=== PATIENT | female | born 1995 | race Caucasian/White ===

== ENCOUNTER → 2022-08-22 10:18 | Outpatient (CLI) | payer OTHER, SELFPAY ==
--- NOTE | 2022-08-22 10:21 | DI.US.S_ITS ---
PROCEDURE: US OB <= 14 WEEKS FETUS INDICATIONS: DATES OUTSIDE/PRIOR DATING DATA: Last menstrual period (LMP): 06/05/2022. LMP-based estimated date of delivery (MOE): 03/12/2023. First dating scan (date and location): 08/22/2022. Estimated date of delivery (MOE) from first dating scan: 03/08/2023. TECHNIQUE: Real-time scanning was performed of the fetus and maternal pelvic organs, with image documentation. Endovaginal scanning was also performed to better visualize the fetus and maternal ovaries. COMPARISON: None. FINDINGS: Embryo: [place]-rump length of 5.0 centimeters corresponding to gestational age of 11 weeks 5 days Heart rate: 157 beats per minute 3.9 centimeters subchorionic hemorrhage present, less than 50 percent circumference of the gestational sac. Maternal organs: Right corpus luteum. Left ovary not visualized likely due to bowel gas. IMPRESSION: Single living intrauterine with gestational age of 11 weeks 5 days by crown-rump length corresponding to an MOE of 03/08/2023, concordant with clinical dates. We strive to produce accurate, complete, and clear reports of imaging services. To assist us in improving patient care, this report was composed using standard report templates and voice recognition software. Therefore, it may contain abnormal punctuation, insertions and/or omissions. Occasional wrong-word or sound-alike substitutions may occur. Though we review the report and make efforts to correct it, we do recommend that the report be read carefully in proper context to recognize any text inaccuracies. Dictated by: Chilango Colon M.D. on 08/22/2022 at 13:08 Approved by: Chilango Colon M.D. on 08/22/2022 at 13:16
== END ==
PROVIDERS: Family Provider Family Medicine; PCP Family Medicine; Referring Provider Specialist; Visit Provider Specialist
DX: Z3A.11 11 weeks gestation of pregnancy; Z34.81 Encounter for supervision of other normal pregnancy, first trimester
CPT/HCPCS: 76801; 76817

== ENCOUNTER → 2022-09-04 09:11 | Outpatient (CLI) | payer OTHER, SELFPAY ==
[2022-09-04 10:56] LABS: Add Manual Diff / Slide Review NO; Basophils Absolute Auto 100 /uL (0-100); Basophils Percent Auto 0.6 % (0-2); Eosinophils Absolute Auto 500 /uL (0-450); Eosinophils Percent Auto 5.8 % (2-4); Hematocrit 36.3 % (36-46); Hemoglobin 12.3 g/dL (12.0-16.0); Lymphocytes Absolute Auto 1900 /uL (1100-4500); Lymphocytes Percent Auto 21.3 % (25-40); Mean Corpuscular Hemoglobin 29.6 PG (26-34); Mean Corpuscular Volume 87.2 fL (80-100); Monocytes Absolute Auto 400 /uL (0-900); Monocytes Percent Auto 4.6 % (3-14); Neutrophils Absolute Auto 6000 /uL (1500-7000); Neutrophils Percent Auto 67.7 % (50-75); Platelet Count 248 X10^3/uL (150-400); Red Blood Cell Count 4.16 X10^6/uL (4.0-5.2); Red Cell Distribution Width 13.1 % (11.6-14.8); White Blood Cell Count 8.9 X10^3/uL (4.5-11.0)
[2022-09-04 17:48] LABS: Hepatitis B Surface Antigen NEGATIVE s/c (NEGATIVE); Rubella Antibody IgG 3.7 IU/mL (>15)
[2022-09-04 17:58] LABS: HIV 1 & 2 Ab/Ag 4th Gen Combo NEGATIVE (NEGATIVE); Hep C Virus Ab w/Reflex Quant NEGATIVE s/c (NEGATIVE)
[2022-09-05 08:10] LABS: RPR Screen Non Reactive (Non Reactive)
[2022-09-05 10:25] LABS: Varicella IgG Antibody 852 index (Immune >165)
== END ==
PROVIDERS: Family Provider Family Medicine; PCP Family Medicine; Referring Provider Specialist; Visit Provider Specialist
DX: Z34.81 Encounter for supervision of other normal pregnancy, first trimester (principal)
CPT/HCPCS: 36415; 80055; 86787; 86803; 86850; 86900; 86901; 87086; 87389

== ENCOUNTER → 2022-10-27 07:59 | Outpatient (CLI) | payer OTHER, SELFPAY ==
--- NOTE | 2022-10-27 07:59 | DI.US.S_ITS ---
PROCEDURE: US OB >= 14 WEEKS FETUS INDICATIONS: 20 week anatomy OUTSIDE/PRIOR DATING DATA: Last menstrual period (LMP): 06/05/2022. LMP-based estimated date of delivery (MOE): 03/12/2023 First dating scan (date and location): 08/22/2022 Estimated date of delivery (MOE) from first dating scan: 03/08/2023. The calculations are made using the working MOE of 03/12/2023. TECHNIQUE: Real-time scanning was performed of the fetus, with image documentation and biometric measurements. Endovaginal scanning: Not performed COMPARISON: None. FINDINGS: General: A single living intrauterine gestation is present. Presentation: Breech. Placenta: Placental position is posterior , without previa. Amniotic fluid index: 16.9 cm, normal range is 5-24 cm. Single deepest vertical pocket is 5.6 cm. heart rate: 136 beats per minute. Maternal cervical canal: 4.6 cm long. Normal lower limit is 2.5 cm. biometrics: Biparietal diameter: 4.6 cm, 20 weeks 0 days Head circumference: 18.1 cm, 20 weeks 3 days Abdominal circumference: 17.2 cm, 22 weeks 0 days Femur length: 3.3 cm, 20 weeks 2 days Clinically estimated gestational age: 20 weeks 4 days Composite gestational age from present scan: 20 weeks 5 days Estimated weight and percentile: 398 g, 73rd percentile Anatomic survey: Neuro: Ventricles are non-dilated at less than 10 mm. Cisterna magna is normal at 3-11 mm. Cerebellum is normal in size and morphology. Nuchal skin fold: Borderline, measuring 6 mm. Face: Nose and lips, facial profile are normal. Spine: No evidence for spina bifida. Heart: 4-chambered heart is present, with normal ventricular outflow tracts. Diaphragm: Diaphragm is intact. Stomach: Left-sided stomach is present. Kidneys: No hydronephrosis. Normal is less than 5 mm in 2nd trimester, less than 7 mm in 3rd trimester. Cord: 3-vessel cord has orthotopic insertion. Bladder: Normal in size. Extremities: All 4 extremities identified. IMPRESSION: 1. Living 2nd trimester intrauterine with no sonographic evidence of complications. Current ultrasound age corresponds to establish clinical age based on LMP. 2. Borderline nuchal skin fold thickening. Otherwise unremarkable 2nd trimester anatomical survey. We strive to produce accurate, complete, and clear reports of imaging services. To assist us in improving patient care, this report was composed using standard report templates and voice recognition software. Therefore, it may contain abnormal punctuation, insertions and/or omissions. Occasional wrong-word or sound-alike substitutions may occur. Though we review the report and make efforts to correct it, we do recommend that the report be read carefully in proper context to recognize any text inaccuracies. Dictated by: Berny Lawler M.D. on 10/27/2022 at 17:59 Approved by: Berny Lawler M.D. on 10/27/2022 at 18:02
== END ==
PROVIDERS: Family Provider Family Medicine; Referring Provider Specialist; Visit Provider Specialist
DX: Z34.82 Encounter for supervision of other normal pregnancy, second trimester (principal); Z3A.20 20 weeks gestation of pregnancy
CPT/HCPCS: 76811

== ENCOUNTER → 2022-11-03 10:03 | Outpatient (CLI) | payer OTHER, SELFPAY ==
[2022-11-05 23:24] LABS: AFP Value 55.8 ng/mL (.); Gest Age on Col Date 21.6 weeks (.); Insulin Dep Diabetes No (.); OSBR Risk 1IN 10000 (.); Results Report (.); Test Results *Screen Negative* (.)
[2022-11-06 07:23] LABS: PDF SCANNED
== END ==
PROVIDERS: Family Provider Family Medicine; Referring Provider Physician Assistant Medical; Visit Provider Physician Assistant Medical
DX: Z34.82 Encounter for supervision of other normal pregnancy, second trimester (principal); Z3A.21 21 weeks gestation of pregnancy
CPT/HCPCS: 82105

== ENCOUNTER → 2022-12-01 08:58 | Outpatient (CLI) | payer OTHER, SELFPAY ==
[2022-12-01 11:03] LABS: Hemoglobin 10.9 g/dL (12.0-16.0)
[2022-12-01 11:10] LABS: GTT (PREG) 1 Hour PP 50gm Dose 83 mg/dL (76-139)
== END ==
PROVIDERS: Family Provider Family Medicine; Referring Provider Physician Assistant Medical; Visit Provider Physician Assistant Medical
DX: Z34.82 Encounter for supervision of other normal pregnancy, second trimester (principal); Z3A.21 21 weeks gestation of pregnancy
CPT/HCPCS: 36415; 82950; 85014; 85018

== ENCOUNTER 2023-01-16 17:26 | Observation (INO) | payer OTHER, SELFPAY ==
[2023-01-16 18:09] LABS: Appearance Urine UA CLEAR; Bilirubin Urine UA NEGATIVE (NEGATIVE); Color Urine UA YELLOW; Glucose Urine UA NEGATIVE (Negative); Ketones Urine UA NEGATIVE (NEGATIVE); Leukocyte Esterase Urine UA NEGATIVE (NEGATIVE); Nitrite Urine UA NEGATIVE (Negative); Occult Blood Urine UA NEGATIVE (Negative); Protein Urine UA NEGATIVE (Negative); Specific Gravity Urine UA <=1.005 (1.000-1.035); Urobilinogen Urine UA 0.2 E.U./dL (0.2)
[2023-01-16 18:10] LABS: pH Urine UA 6.5 (4.5-8.0)
[2023-01-16 18:17] LABS: Bacteria Urine None Seen; Culture Indicated Urine Cult Not Indicated; RBC Urine None Seen (0-5/HPF); Squamous Epithelial Cell Urine None Seen (0-5/HPF); WBC Urine None Seen (0-5/HPF)
[2023-01-16 18:40] LABS: Add Manual Diff / Slide Review NO; Basophils Absolute Auto 100 /uL (0-100); Basophils Percent Auto 0.6 % (0-2); Eosinophils Absolute Auto 400 /uL (0-450); Eosinophils Percent Auto 2.8 % (2-4); Hematocrit 31.4 % (36-46); Hemoglobin 10.7 g/dL (12.0-16.0); Lymphocytes Absolute Auto 2300 /uL (1100-4500); Lymphocytes Percent Auto 17.4 % (25-40); Mean Corpuscular Volume 85.4 fL (80-100); Monocytes Absolute Auto 800 /uL (0-900); Monocytes Percent Auto 5.9 % (3-14); Neutrophils Absolute Auto 9500 /uL (1500-7000); Neutrophils Percent Auto 73.3 % (50-75); Platelet Count 220 X10^3/uL (150-400); Red Blood Cell Count 3.67 X10^6/uL (4.0-5.2); Red Cell Distribution Width 12.6 % (11.6-14.8)
[2023-01-16 18:50] LABS: Alanine Aminotransferase 16 IU/L (<35); Albumin 3.5 g/dL (3.5-5.0); Albumin Globulin Ratio 1.2 (1.0-2.8); Alkaline Phosphatase 84 U/L (38-126); Aspartate Aminotransferase 22 IU/L (14-36); BUN Creatinine Ratio 10.8 (6-22); Bilirubin Total 0.4 mg/dL (0.2-1.3); Blood Urea Nitrogen 4 mg/dL (7-17); Calcium 8.5 mg/dL (8.4-10.2); Carbon Dioxide 22 mmol/L (22-32); Chloride 106 mmol/L (98-107); Estimated Glomerular Filt Rate > 60 mL/min (>60); Glucose 80 mg/dL (70-100); HEMOLYSIS < 15 (0-50); Potassium 3.5 mmol/L (3.4-5.1); Sodium 133 mmol/L (137-145); Total Protein 6.5 g/dL (6.3-8.2)
--- NOTE | 2023-01-16 19:21 | PM.OBHP.1 ---
OB HPI Date/Time Date of admission: 01/16/23 Date Patient Seen: 01/16/23 Time Patient Seen: 19:22 History of Present Condition Chief complaint: blood pressure check : 2 Para: 0 Estimated Date of Delivery: 03/12/23 Narrative: Sonaliamy Cartagena is a 27 year old female Indications Operative indications ( section): RLQ Pain (Patient states that 7:00 a.m. this morning she developed right lower quadrant pain upon awakening. She states that this is different than her round ligament pain earlier in . The pain remains constant roughly 3 to 4/10. She has exacerbations which go to 7-8. She denies any nausea vomiti) History of Present care: good care Dating criteria: LMP confirmed by 1st trimester US Ultrasounds: normal mid trimester US Obstetrical complications: none Preadmission Labs -: Antibody screen: negative, HBsAG: negative, HIV: negative, HSV 1: negative, HSV 2: negative and RPR/VDLR: negative -: Rubella: not immune and Varicella: immune PFSH Surgical History [place] teeth extracted Family History Grandmother Ovarian cancer Family/Other Breast cancer Family/Other Diabetes mellitus Social History marital status: unmarried,living together number of children: 0 household members: significant other lives independently: Yes caregiver/support person: Yes housing: house pets and animals: Yes (dogs, cat, rabbits, chickens; reviewed toxo and salmonella precations) education level: college (some college) occupational status: employed (manages a retail store) current occupational exposures/hazards: No special sarah needs: No travel history: recent ([place]) seatbelt use: always helmet use: Yes water heater temp set < 120 deg: Yes working smoke detector in home: Yes carbon monox detector in home: Yes firearms in home: No Smoking Status: Never smoker second hand exposure: No alcohol intake: former (occasionally when not ) substance use type: does not use during the past year weight has: remained stable well-balanced diet: daily or most days daily servings fruits/ve-4 caffeine: Yes (occasional black ) Type(s) of exercise: running and yoga frequency: 5-6 times per week Meds Home Medications and Allergies Home Medications Medication Instructions Recorded Confirmed Type albuterol sulfate 90 mcg/actuation 1 puff inhalation Q6H #3 12/07/17 01/14/23 Rx aerosol inhaler (Proventil HFA) inhalations [id number] 400 mcg-om3 35 mg-dha 25 tab PO 08/25/22 01/14/23 History mg-epa 5 mg-fish oil chewable tablet ferrous gluconate 240 mg (27 mg 240 mg PO DAILY 08/25/22 01/14/23 History iron) tablet (Ferate) Allergies Allergy/AdvReac Type Severity Reaction Status Date / Time No Known Drug Allergies Allergy Verified 01/14/23 10:13 OB Exam Vital signs Blood Pressure: 98/66 Pulse Rate: 96 Respiratory Rate: 18 Temperature: 98.1 F HENMT Head: normocephalic Mouth: oral mucosae normal, tongue normal, mucous membranes abnormal and other (Dentition appears normal) Eyes General: appearance normal, both eyes and all related structures Direct ophthalmoscopy: other (Nonicteric) Resp Effort & Inspection: normal respiratory effort and able to speak in complete sentences (No rales wheezes) Cardio Rate: regular rate Rhythm: regular rhythm Heart Sounds: S1 normal and S2 normal GI Inspection: normal to inspection Palpation: Yes tender (Tenderness in the RLQ. This appeared to be different from uterus) Auscultation: normal bowel sounds Other: The round ligament was nontender. The tenderness is palpated appear to be different than that of the uterus. 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 Other: Reactive strip with evidence of good accelerations. Category 1 strip. Objective Labs 01/16/23 18:25 01/16/23 18:25 Labs: Laboratory Results - last 24 hr 01/16/23 01/16/23 17:45 18:25 WBC 13.0 H RBC 3.67 L Hgb 10.7 L Hct 31.4 L MCV 85.4 MCH 29.0 MCHC 34.0 RDW 12.6 Plt Count 220 Neut % (Auto) 73.3 Lymph % (Auto) 17.4 L [place] % (Auto) 5.9 Eos % (Auto) 2.8 Baso % (Auto) 0.6 Neut # (Auto) 9500 H Lymph # (Auto) 2300 [place] # (Auto) 800 Eos # (Auto) 400 Baso # (Auto) 100 Sodium 133 L Potassium 3.5 Chloride 106 Carbon Dioxide 22 BUN 4 L Creatinine 0.37 L Estimated GFR > 60 BUN/Creatinine Ratio 10.8 Glucose 80 Calcium 8.5 Total Bilirubin 0.4 AST 22 ALT 16 Alkaline Phosphatase 84 Total Protein 6.5 Albumin 3.5 Globulin 3.0 Albumin/Globulin Ratio 1.2 Urine Color Yellow Urine Appearance Clear Urine pH 6.5 Ur Specific Story <=1.005 Urine Protein Negative Urine Glucose (UA) Negative Urine Ketones Negative Urine Occult Blood Negative Urine Nitrate Negative Urine Bilirubin Negative Urine Urobilinogen 0.2 Ur Leukocyte Esterase Negative Urine RBC None seen Urine WBC None seen Ur Squamous Epith Cells None seen Urine Bacteria None seen Ur Culture Indicated? Cult not indicated Assessment and Plan Assessment and Plan Assessment and Plan narrative: Impression 27-year-old female at 32 weeks and 1 day. She appears to have developed right lower quadrant pain which is different from her round ligament pain I have discussed the issues with general surgery. In view of the fact that she is we will try to void and CT. However because of timing concerns we will pursue an MRI of the abdomen looking for evidence of appendicitis. Time Spent with Patient Total time spent with greater than 50% in coordination of care (as documented) at patient's floor/unit and/or counseling patient:: Greater than 35 minutes
[2023-01-16 19:41] VITALS: BP 98/66; PULSE 96; RESP 18; TEMP 36.7
== END 2023-01-16 19:10 | disposition home or self-care (01) ==
LOC: LABOR 17:31
PROVIDERS: Admitting Provider Obstetrics & Gynecology; Family Provider Family Medicine; Referring Provider Obstetrics & Gynecology; Visit Provider Obstetrics & Gynecology
DX: O26.893 Other specified pregnancy related conditions, third trimester (principal); R10.31 Right lower quadrant pain; O23.03 Infections of kidney in pregnancy, third trimester; N13.6 Pyonephrosis; Z3A.32 32 weeks gestation of pregnancy
CPT/HCPCS: 59025; 59050; 74181; 80053; 81001; 85025; 96360; 99232; 99283; G0378; G0379

== ENCOUNTER 2023-01-16 19:12 | Emergency (ER) | payer OTHER, SELFPAY ==
--- NOTE | 2023-01-16 19:15 | DI.MRI.S_ITS ---
PROCEDURE: MR ABDOMEN WO CON INDICATIONS: rlq pain TECHNIQUE: Coronal, axial, and sagittal HASTE, axial fat-suppressed HASTE, axial 2-D FLASH in- and [id number], axial T2 [id number], and diffusion-weighted imaging through the abdomen and pelvis. COMPARISON: None. FINDINGS: Image quality: Excellent. Pancreas and biliary system: Intra- and extra-hepatic biliary ducts are non dilated. Pancreas is normal in morphology, without adjacent soft tissue edema. Pancreatic duct is normal in caliber, without developmental anomalies. Gallbladder appears normal without gallstones. Other solid organs: Liver is normal in size. Spleen is normal in size. No adrenal nodules. Both kidneys are normal in size. Moderate right and mild left hydronephrosis. Nodes and vessels: No retroperitoneal or mesenteric adenopathy by size criteria. Aorta and inferior vena cava are normal in size. Bowel and peritoneum: Right lower quadrant appendix is partially visualized and appears normal. No periappendiceal edema or inflammatory changes are seen. Unenhanced bowel loops are normal in caliber. No free fluid. Pelvis: Enlarged gravid uterus. The no definite abnormality is seen. Ovaries are not well visualized. Lung bases: No basal pleural effusions. Heart size is normal. Bones and soft tissues: No ventral hernias. Bone marrow is of normal overall signal. IMPRESSION: 1. Enlarged gravid uterus. 2. Appendix is only partially visualized, but appears to be normal in size. No right lower quadrant inflammatory changes are seen. 3. Moderate right hydronephrosis and mild left hydronephrosis. Approved by: Chilango Flores M.D. on 01/16/2023 at 21:48
[2023-01-16 19:22] VITALS: BP 107/57; PULSE 71; RESP 16; TEMP 36.6; O2SAT 100; BMI 25.7
--- NOTE | 2023-01-16 21:58 | ED.GENADULT ---
HPI - General Adult General Chief complaint: Abdominal Pain Stated complaint: DISCHARGED FROM OB/RIGHT LOWER ABD PAIN Time Seen by Provider: 01/16/23 20:46 Source: patient Mode of arrival: Wheelchair History of Present Illness HPI narrative: Patient is a 27-year-old female. Thirty-two weeks EGA. Has less than 24 hours of right lower quadrant abdominal pain. No cramping. No vaginal bleeding. No urinary symptoms. No fevers. She was seen at the center and was sent to the emergency department for an MRI to evaluate for appendicitis. Pain is worse with feeling the baby move and with ambulating. Had labs drawn prior to arrival here in the ER. Had a white blood cell count of 13. Related Data Home Medications Medication Instructions Recorded Confirmed [id number] 400 mcg-om3 35 mg-dha 25 tab PO 08/25/22 01/14/23 mg-epa 5 mg-fish oil chewable tablet ferrous gluconate 240 mg (27 mg 240 mg PO DAILY 08/25/22 01/14/23 iron) tablet (Ferate) Previous Rx's Medication Instructions Recorded albuterol sulfate 90 mcg/actuation 1 puff inhalation Q6H #3 12/07/17 aerosol inhaler (Proventil HFA) inhalations Allergies Allergy/AdvReac Type Severity Reaction Status Date / Time No Known Drug Allergies Allergy Verified 01/14/23 10:13 Review of Systems Constitutional Constitutional: Reports system reviewed and no additional complaints, except as documented Gastrointestinal Gastrointestinal: Reports system reviewed and no additional complaints, except as documented Genitourinary Genitourinary: Reports system reviewed and no additional complaints, except as documented Integumentary/Breasts Skin/Breast: Reports system reviewed and no additional complaints, except as documented Patient History Surgical History [place] teeth extracted Family History Grandmother Ovarian cancer Family/Other Breast cancer Family/Other Diabetes mellitus Social History marital status: unmarried,living together number of children: 0 household members: significant other lives independently: Yes caregiver/support person: Yes housing: house pets and animals: Yes (dogs, cat, rabbits, chickens; reviewed toxo and salmonella precations) education level: college (some college) occupational status: employed (manages a retail store) current occupational exposures/hazards: No special sarah needs: No travel history: recent ([place]) seatbelt use: always helmet use: Yes water heater temp set < 120 deg: Yes working smoke detector in home: Yes carbon monox detector in home: Yes firearms in home: No Smoking Status: Never smoker second hand exposure: No alcohol intake: former (occasionally when not ) substance use type: does not use during the past year weight has: remained stable well-balanced diet: daily or most days daily servings fruits/ve-4 caffeine: Yes (occasional black ) Type(s) of exercise: running and yoga frequency: 5-6 times per week Smoking Status: Never smoker Substance Use Type: does not use Exam Initial Vital Signs Initial Vital Signs: Vital Signs Temperature 97.8 F 01/16/23 19:22 Pulse Rate 71 01/16/23 19:22 Respiratory Rate 16 01/16/23 19:22 Blood Pressure 107/57 L 01/16/23 19:22 Pulse Oximetry 100 01/16/23 19:22 Oxygen Delivery Method Room Air 01/16/23 19:22 HENMT Head: normal to inspection and normocephalic Resp Effort & Inspection: normal respiratory effort Cardio Rate: regular rate GI Inspection: normal to inspection Other: Gravid abdomen, minimal tenderness to palpation right lower quadrant Back/Spine/Pelvis Back: No CVA tenderness Skin General: no rashes or lesions noted Neuro General: patient alert and patient awake Course Orders Ordered: ED Orders 01/16/23 19:15 MR abdomen wo con Stat Vital Signs Vital signs: Vital Signs - 8 hr 01/16/23 22:06 Temperature 98.3 F Pulse Rate 74 Respiratory Rate 18 Blood Pressure 109/57 L Pulse Oximetry 100 Oxygen Delivery Method Room Air Medical Decision Making Imaging Data Abdominal MRI: Radiologist's Impression: PROCEDURE: MR ABDOMEN WO CON INDICATIONS: rlq pain TECHNIQUE: Coronal, axial, and sagittal HASTE, axial fat-suppressed HASTE, axial 2-D FLASH in- and [id number], axial T2 [id number], and diffusion-weighted imaging through the abdomen and pelvis. COMPARISON: None. FINDINGS: Image quality: Excellent. Pancreas and biliary system: Intra- and extra-hepatic biliary ducts are non dilated. Pancreas is normal in morphology, without adjacent soft tissue edema. Pancreatic duct is normal in caliber, without developmental anomalies. Gallbladder appears normal without gallstones. Other solid organs: Liver is normal in size. Spleen is normal in size. No adrenal nodules. Both kidneys are normal in size. Moderate right and mild left hydronephrosis. Nodes and vessels: No retroperitoneal or mesenteric adenopathy by size criteria. Aorta and inferior vena cava are normal in size. Bowel and peritoneum: Right lower quadrant appendix is partially visualized and appears normal. No periappendiceal edema or inflammatory changes are seen. Unenhanced bowel loops are normal in caliber. No free fluid. Pelvis: Enlarged gravid uterus. The no definite abnormality is seen. Ovaries are not well visualized. Lung bases: No basal pleural effusions. Heart size is normal. Bones and soft tissues: No ventral hernias. Bone marrow is of normal overall signal. IMPRESSION: 1. Enlarged gravid uterus. 2. Appendix is only partially visualized, but appears to be normal in size. No right lower quadrant inflammatory changes are seen. 3. Moderate right hydronephrosis and mild left hydronephrosis. [facility] Narrative Medical decision making narrative: Patient has a leukocytosis however in her current setting to include this is a nonspecific finding. Review of her medical record shows that otherwise her labs are unremarkable. MRI of her abdomen shows partial appendix but no signs of appendicitis. No secondary signs of appendicitis. Given the fact that the patient has had symptoms for less than 12 hours and is not febrile and has a benign exam we will hold on further workup for now. Patient was given strict return precautions. She expressed understanding and agreement. Discharge Plan Departure Patient Disposition: Home Clinical Impression: Abdominal pain during Instructions: DI for Abdominal Pain-Adult Activity Restrictions/Additional Instructions: Your workup here in the emergency department and over in labor and delivery is very reassuring. There was no indication of appendicitis based on the MRI today. Recommend that you keep all of your scheduled medical appointments. Return to the emergency department for new or worsening symptoms. Prescriptions: No Action albuterol sulfate [Proventil HFA] 90 mcg/actuation HFA aerosol inhaler 1 puff INHALATION Q6H Qty: 3 3RF [id number] oil 400 mcg-35 mg -25 mg-5 mg tablet,chewable PO ferrous gluconate [Ferate] 240 mg (27 mg iron) tablet 240 mg PO DAILY Referrals: Miscellaneous,Doctor, MD [Primary Care Provider] - Stand Alone Forms: Patient Portal/API
[2023-01-16 22:06] VITALS: BP 109/57; PULSE 74; RESP 18; TEMP 36.8; O2SAT 100
== END 2023-01-16 22:07 | disposition home or self-care (01) ==
PROVIDERS: Emergency Provider Emergency Medicine; Family Provider Family Medicine
DX: O26.893 Other specified pregnancy related conditions, third trimester (principal); R10.31 Right lower quadrant pain; O23.03 Infections of kidney in pregnancy, third trimester; N13.6 Pyonephrosis; Z3A.32 32 weeks gestation of pregnancy
CPT/HCPCS: 74181; 99283

== ENCOUNTER → 2023-02-12 09:01 | Outpatient (CLI) | payer OTHER, SELFPAY ==
[2023-02-13 09:29] LABS: Strep Grp B PCR NEG for Grp B Strep
== END ==
PROVIDERS: Family Provider Family Medicine; Visit Provider Student in an Organized Health Care Education/Training Program
DX: Z34.93 Encounter for supervision of normal pregnancy, unspecified, third trimester (principal); Z3A.36 36 weeks gestation of pregnancy
CPT/HCPCS: 87653

== ENCOUNTER 2023-03-02 04:49 | Observation (INO) | payer OTHER, SELFPAY ==
--- NOTE | 2023-03-02 05:58 | PM.OBTRLD ---
Visit Information Visit Information Date of evaluation: 03/02/23 Comments/Additional reasons for admission: 27yo at 38w4d here with contractions. Pt reports contractions starting earlier yesterday morning, increasing in frequency and intensity and now every 5 min. No vaginal bleeding or LOF. She is feeling her baby move regularly. [facility] Surgical History [place] teeth extracted Family History Grandmother Ovarian cancer Family/Other Breast cancer Family/Other Diabetes mellitus Social History marital status: unmarried,living together number of children: 0 household members: significant other lives independently: Yes caregiver/support person: Yes housing: house pets and animals: Yes (dogs, cat, rabbits, chickens; reviewed toxo and salmonella precations) education level: college (some college) occupational status: employed (manages a retail store) current occupational exposures/hazards: No special sarah needs: No travel history: recent ([place]) seatbelt use: always helmet use: Yes water heater temp set < 120 deg: Yes working smoke detector in home: Yes carbon monox detector in home: Yes firearms in home: No Smoking Status: Never smoker second hand exposure: No alcohol intake: former (occasionally when not ) substance use type: does not use during the past year weight has: remained stable well-balanced diet: daily or most days daily servings fruits/ve-4 caffeine: Yes (occasional black ) Type(s) of exercise: running and yoga frequency: 5-6 times per week Evaluation Evaluation Baseline heart rate: 125 Variability: Moderate (11-25) monitor accelerations: Present Monitor Decelerations: Absent Contraction Frequency (minutes): 4 Status: Category l Cervical dilation (cm): 3.5 Cervical effacement (%): 90 Diagnosis, Plan/Disposition Final Diagnosis (1) Prolonged latent phase of labor: Status: Acute Plan/Disposition Plan: 27yo at 38w4d here with contractions. Pt in early labor. Prefers to go home to her mother's house in [place] for now, as desires natural labor. GBS negative. NST reactive. Discussed return precautions. OB Disposition: home
== END 2023-03-02 05:42 | disposition home or self-care (01) ==
PROVIDERS: Admitting Provider Family Medicine; Family Provider Family Medicine; Referring Provider Family Medicine; Visit Provider Family Medicine
DX: O63.0 Prolonged first stage (of labor) (principal); Z3A.38 38 weeks gestation of pregnancy
CPT/HCPCS: G0378; G0379

== ENCOUNTER 2023-03-02 07:52 | Inpatient (IN) | payer OTHER, SELFPAY ==
[2023-03-02 08:20] VITALS: BP 114/63
[2023-03-02 08:58] LABS: Add Manual Diff / Slide Review NO; Basophils Absolute Auto 100 /uL (0-100); Basophils Percent Auto 0.4 % (0-2); Eosinophils Absolute Auto 0 /uL (0-450); Eosinophils Percent Auto 0.2 % (2-4); Hemoglobin 10.8 g/dL (12.0-16.0); Lymphocytes Absolute Auto 1100 /uL (1100-4500); Lymphocytes Percent Auto 7.4 % (25-40); Mean Corpuscular HGB Conc 33.6 % (30-36); Mean Corpuscular Hemoglobin 27.8 PG (26-34); Mean Corpuscular Volume 82.7 fL (80-100); Monocytes Absolute Auto 500 /uL (0-900); Monocytes Percent Auto 3.4 % (3-14); Neutrophils Absolute Auto 13500 /uL (1500-7000); Neutrophils Percent Auto 88.6 % (50-75); Platelet Count 251 X10^3/uL (150-400); Red Blood Cell Count 3.87 X10^6/uL (4.0-5.2); Red Cell Distribution Width 12.7 % (11.6-14.8); White Blood Cell Count 15.2 X10^3/uL (4.5-11.0)
[2023-03-02] MEDS: OXYTOCIN PREMIX 30 UNIT/500 ML PLAST..BAG 200 UNIT IV (10:48)
--- NOTE | 2023-03-02 11:29 | PM.OBHP.1 ---
OB HPI Date/Time Date of admission: 03/02/23 Date Patient Seen: 03/02/23 Time Patient Seen: 10:30 History of Present Condition Chief complaint: OB : 2 Para: 1 Estimated Date of Delivery: 03/12/23 Estimated Gestational Age (weeks): 38w4d Narrative: Sonali Cartagena is a 27 year old female - [id number] - at 38w4d presenting for labor. Seen in triage this AM - 3.5 cm dilated. Patient decided to labor at home. Contractions became more intense and closer together, prompting patient to return. No VB. Good FM. SROM shortly after arrival. History of Present care: good care Dating criteria: LMP confirmed by 1st trimester US Obstetrical complications: other (Rubella non immune) Medical complications: respiratory (Mild to moderate asthma) Preadmission Labs Blood type: A (+) positive -: Antibody screen: negative, HBsAG: negative, HIV: negative and RPR/VDLR: negative -: Rubella: not immune and Varicella: immune HCT: 10.8 Cell-free DNA: Low risk 3 hr GTT: 1 hr Narrative: Nrl Prior (ies) History: medical AB Evaluation Evaluation Baseline heart rate: 120 Variability: Moderate (11-25) monitor accelerations: Present Monitor Decelerations: Absent Category of Tracing: Reactive Status: Category l Dilation (cm): 10 Effacement (%): 100 station: +1 Comments: Returned to triage as contractions intensified. Took a brief shower, SROM occurred at this time 10:17 for clear fluid. Checked afterwards and found to be complete at 10:25. 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[employer]) current occupational exposures/hazards: No special sarah needs: No travel history: recent ([place]) seatbelt use: always helmet use: Yes water heater temp set < 120 deg: Yes working smoke detector in home: Yes carbon monox detector in home: Yes firearms in home: No Smoking Status: Never smoker second hand exposure: No alcohol intake: former (occasionally when not ) substance use type: does not use during the past year weight has: remained stable well-balanced diet: daily or most days daily servings fruits/ve-4 caffeine: Yes (occasional black ) Type(s) of exercise: running and yoga frequency: 5-6 times per week Meds Home Medications and Allergies Home Medications Medication Instructions Recorded Confirmed Type albuterol sulfate 90 mcg/actuation 1 puff inhalation Q6H #3 12/07/17 03/02/23 Rx aerosol inhaler (Proventil HFA) inhalations [id number] 400 mcg-om3 35 mg-dha 25 tab PO 08/25/22 02/26/23 History mg-epa 5 mg-fish oil chewable tablet ferrous gluconate 240 mg (27 mg 240 mg PO DAILY 08/25/22 03/02/23 History iron) tablet (Ferate) Allergies Allergy/AdvReac Type Severity Reaction Status Date / Time No Known Drug Allergies Allergy Verified 03/02/23 09:21 Review of Systems Review of Systems Narrative: as above OB Exam Narrative Exam Narrative: GEN: pleasant, NAD, uncomfortable with contractions Pulm:normal WOB Abd: gravid, soft, non TTP Skin: no visible rashes, WWP Psych: normal affect Neuro: normal gait, symmetric movement Objective Labs 03/02/23 08:30 Labs: Laboratory Results - last 24 hr 03/02/23 08:30 WBC 15.2 H RBC 3.87 L Hgb 10.8 L Hct 32.0 L MCV 82.7 MCH 27.8 MCHC 33.6 RDW 12.7 Plt Count 251 Neut % (Auto) 88.6 H Lymph % (Auto) 7.4 L [place] % (Auto) 3.4 Eos % (Auto) 0.2 L Baso % (Auto) 0.4 Neut # (Auto) 77790 H Lymph # (Auto) 1100 [place] # (Auto) 500 Eos # (Auto) 0 Baso # (Auto) 100 Blood Type A Positive Antibody Screen Negative Assessment and Plan Assessment and Plan Assessment and Plan narrative: 27 yo admitted at 38w4d for labor. Routine orders Planning unmedicated FHT reassuring on admit GBS neg
--- NOTE | 2023-03-02 11:49 | PM.OBPRVD ---
Events: Other (term labor, presented to triage earlier this AM in early labor and then returned in active labor) Labor & Delivery Delivery date: 03/02/23 Intrapartal Events: None Cervical ripening method: none Induction method: none Delivery monitor: external FHT (intermittent) Route of delivery: L&D Laceration Description: Labial (1st degree) Delivery repair: vicryl Estimated blood loss (mL): 400 Anesthesia Type: None Complications: None Narrative: Patient presented in active labor. SROM occurred while in shower, 10:17 for clear fluid. Complete upon initial check at 10:25. FHT intermittent, but reassuring. Category 1. MD called to bedside at 10:25. Patient began to push with contractions upon complete dilation. Pushed for 22 minutes. Baby delivered FAM, body nuchal. No meconium or shoulder dystocia complicating delivery. Pitocin started immediately after delivery. Placenta delivered 7 minutes later, intact with 3 vessel cord. 1st degree labial tear repaired in usual fashion with 3-0 vicyrl. Fundus firm and baby with mom on chest at time of departure from room. Plan for aftercare: Routine care
--- NOTE | 2023-03-03 07:41 | PM.OBDS.1 ---
Discharge Providers Provider Date of admission: 03/02/23 07:52 Discharge Date: 03/03/23 Primary care physician: [facility] Consults: 03/03/23 11:47 Consult to [employer] Routine Comment: Discharge provider: Shannon Roach MD Summary Hospital Course Date Patient Seen: 03/03/23 Time Patient Seen: 07:41 Diagnoses: , uncomplicated 1st degree laceration Hospital Course: Patient is a 27 yo [id number] who presented in labor. Found to be complete on initial exam, SROM occurred while in shower. Delivery uncomplicated, see delivery note. PP course uncomplicated. Voiding well. Eating and ambulating normally. Lochia WNL. Pain controlled. Mood good. DC to home with care of and mother. F/u at 6 weeks with her doctor assistant. Peripartum Data Infant Delivery Method: Natural Vaginal Laceration Description: Labial (1st degree) Episiotomy description: None complications: none Discharge Diagnosis (1) (spontaneous vaginal delivery): Start Date: 03/02/23 Status: Acute Problem Details: s/p , uncomplicated Time Spent with Patient Time attestation: Total time spent providing and/or coordinating discharge services: Time spent: Less than 30 minutes Objective Labs 03/02/23 08:30 Labs: Laboratory Results - last 24 hr 03/02/23 08:30 WBC 15.2 H RBC 3.87 L Hgb 10.8 L Hct 32.0 L MCV 82.7 MCH 27.8 MCHC 33.6 RDW 12.7 Plt Count 251 Neut % (Auto) 88.6 H Lymph % (Auto) 7.4 L [place] % (Auto) 3.4 Eos % (Auto) 0.2 L Baso % (Auto) 0.4 Neut # (Auto) 06339 H Lymph # (Auto) 1100 [place] # (Auto) 500 Eos # (Auto) 0 Baso # (Auto) 100 Blood Type A Positive Antibody Screen Negative Exam Narrative Exam Narrative: GEN: NAD, well appearing, pleasant CV: RRR Pulm:normal WOB, CTAB Abd: uterus firm below U Skin: no visible rashes, WWP Psych: normal affect Neuro: normal gait, symmetric movement Discharge Plan Discharge Plan Patient Disposition: Home Provider Discharge Comment: Call to schedule [address] up [address] Dr[address] Clark. Call sooner for fevers, foul discharge, increasing bleeding or pain. You can use Tylenol and Ibuprofen as needed. Gradually increase your activity. Discharge orders & Medications Prescriptions: Continued albuterol sulfate [Proventil HFA] 90 mcg/actuation HFA aerosol inhaler 1 puff INHALATION Q6H Qty: 3 3RF [id number] oil 400 mcg-35 mg -25 mg-5 mg tablet,chewable PO ferrous gluconate [Ferate] 240 mg (27 mg iron) tablet 240 mg PO DAILY Follow up/Referrals: Paras,Doctor, MD [Primary Care Provider] - Diet/Activity/Treatments Diet: Diet as Tolerated Activity: as tolerated, slowly progress Visit Report/Discharge Packet Stand Alone Forms: Patient Portal/API, Stroke Signs & Symptoms Discharge Data Primary Care Provider: Doctor Paras Discharges patient from system. Discharge Date/Time: 03/03/23 08:00
[2023-03-03 09:45] VITALS: BP 105/65; PULSE 78; RESP 16; TEMP 37.2
[2023-03-03] MEDS: DOCUSATE 100 MG CAPSULE PO (10:37)
[2023-03-03] MEDS: PRENATAL VIT,CALC/IRON/FOLIC 1 TABLET 1 TAB PO (10:37)
== END 2023-03-03 11:25 | disposition home or self-care (01) | DRG 807 ==
PROVIDERS: Admitting Provider Student in an Organized Health Care Education/Training Program; Family Provider Family Medicine; Referring Provider Student in an Organized Health Care Education/Training Program; Visit Provider Student in an Organized Health Care Education/Training Program
DX: O70.0 First degree perineal laceration during delivery (principal); Z37.0 Single live birth; Z3A.38 38 weeks gestation of pregnancy; O63.0 Prolonged first stage (of labor)
CPT/HCPCS: 36415; 59050; 59400; 59409; 85025; 86850; 86900; 86901; G0378; A9270; G0379; J2590

== ENCOUNTER → 2023-09-21 15:07 | Outpatient (CLI) | payer OTHER, SELFPAY ==
[2023-09-21 18:23] LABS: Urine N gonorrhoeae NOT DETECTED
[2023-09-21 18:29] LABS: Urine Chlamydia NOT DETECTED
== END ==
PROVIDERS: Family Provider Family Medicine; Visit Provider Student in an Organized Health Care Education/Training Program
DX: Z11.3 Encounter for screening for infections with a predominantly sexual mode of transmission (principal)
CPT/HCPCS: 87491; 87591

== ENCOUNTER → 2023-10-20 09:30 | Outpatient (CLI) | payer OTHER, SELFPAY ==
[2023-10-20 10:21] LABS: Add Manual Diff / Slide Review NO; Basophils Absolute Auto 100 /uL (0-100); Basophils Percent Auto 0.6 % (0-2); Eosinophils Absolute Auto 300 /uL (0-450); Eosinophils Percent Auto 3.1 % (2-4); Hematocrit 36.8 % (36-46); Hemoglobin 12.7 g/dL (12.0-16.0); Lymphocytes Absolute Auto 1900 /uL (1100-4500); Lymphocytes Percent Auto 20.2 % (25-40); Mean Corpuscular HGB Conc 34.7 % (30-36); Mean Corpuscular Hemoglobin 28.6 PG (26-34); Mean Corpuscular Volume 82.6 fL (80-100); Monocytes Absolute Auto 400 /uL (0-900); Monocytes Percent Auto 4.3 % (3-14); Neutrophils Absolute Auto 6700 /uL (1500-7000); Neutrophils Percent Auto 71.8 % (50-75); Platelet Count 249 X10^3/uL (150-400); Red Blood Cell Count 4.46 X10^6/uL (4.0-5.2); Red Cell Distribution Width 13.8 % (11.6-14.8); White Blood Cell Count 9.3 X10^3/uL (4.5-11.0)
[2023-10-20 10:54] LABS: Natera Collection Specimen Collected
[2023-10-20 11:20] LABS: Hepatitis B Surface Antigen NEGATIVE s/c (NEGATIVE); Rubella Antibody IgG 3.9 IU/mL (>15)
[2023-10-20 11:36] LABS: HIV 1 & 2 Ab/Ag 4th Gen Combo NEGATIVE (NEGATIVE); Hep C Virus Ab w/Reflex Quant NEGATIVE s/c (NEGATIVE)
[2023-10-21 05:15] LABS: RPR Screen Non Reactive (Non Reactive)
[2023-10-21 08:36] LABS: Varicella IgG Antibody 916 index (Immune >165)
== END ==
PROVIDERS: Family Provider Family Medicine; Referring Provider Student in an Organized Health Care Education/Training Program; Visit Provider Student in an Organized Health Care Education/Training Program
DX: Z34.80 Encounter for supervision of other normal pregnancy, unspecified trimester (principal); Z36.0 Encounter for antenatal screening for chromosomal anomalies
CPT/HCPCS: 36415; 80055; 86787; 86803; 86850; 86900; 86901; 87086; 87389

== ENCOUNTER → 2023-12-04 06:58 | Outpatient (CLI) | payer OTHER, SELFPAY ==
--- NOTE | 2023-12-04 06:59 | DI.US.S_ITS ---
PROCEDURE: US OB >= 14 WEEKS FETUS INDICATIONS: anatomy scan OUTSIDE/PRIOR DATING DATA: Last menstrual period (LMP): 07/10/2023. LMP-based estimated date of delivery (MOE): 04/15/2024 First dating scan (date and location): 09/21/2023. Estimated date of delivery (MOE) from first dating scan: 04/26/2024. The calculations are made using the working MOE of 04/26/2024. TECHNIQUE: Real-time scanning was performed of the fetus, with image documentation and biometric measurements. Endovaginal scanning: No COMPARISON: [facility], , OB >= 14 WEEKS FETUS, 02/12/2023, 9:14. FINDINGS: General: A single living intrauterine gestation is present. Presentation: Vertex. Placenta: Placental position is anterior , without previa. Amniotic fluid index: 11.3 cm, normal range is 5-24 cm. Single deepest vertical pocket is 3.4 cm. heart rate: 139 beats per minute. Maternal cervical canal: 4.1 cm long. Normal lower limit is 2.5 cm. biometrics: Biparietal diameter: 4.5 cm, 19 week 4 day Head circumference: 16.9 cm, 19 week 4 day Abdominal circumference: 14.6 cm, 19 week 6 day Femur length: 3.0 cm, 19 week 1 day Clinically estimated gestational age: 19 week 3 day Composite gestational age from present scan: 19 week 4 day Estimated weight and percentile: 299 g, 53% Anatomic survey: Neuro: Ventricles are non-dilated at less than 10 mm. Cisterna magna is normal at 3-11 mm. Cerebellum is normal in size and morphology. Nuchal skin fold: Normal at less than 6 mm between 14-21 weeks gestational age. Face: Nose and lips, facial profile are normal. Spine: No evidence for spina bifida. Heart: 4-chambered heart is present, with normal ventricular outflow tracts. Diaphragm: Diaphragm is intact. Stomach: Left-sided stomach is present. Kidneys: No hydronephrosis. Normal is less than 5 mm in 2nd trimester, less than 7 mm in 3rd trimester. Cord: 3-vessel cord has orthotopic insertion. Bladder: Normal in size. Extremities: All 4 extremities identified. IMPRESSION: Single live intrauterine consistent with a 19 week 4 day gestation by current ultrasound. Normal anatomic survey Approved by: Rosendo Muñoz M.D. on 12/04/2023 at 14:09
== END ==
PROVIDERS: Family Provider Family Medicine; Referring Provider Student in an Organized Health Care Education/Training Program; Visit Provider Student in an Organized Health Care Education/Training Program
DX: Z34.82 Encounter for supervision of other normal pregnancy, second trimester (principal); Z3A.19 19 weeks gestation of pregnancy
CPT/HCPCS: 76811

== ENCOUNTER → 2024-02-01 08:16 | Outpatient (CLI) | payer OTHER, SELFPAY ==
[2024-02-01 08:58] LABS: Hematocrit 29.6 % (36-46); Hemoglobin 9.8 g/dL (12.0-16.0)
== END ==
PROVIDERS: Referring Provider Student in an Organized Health Care Education/Training Program; Visit Provider Student in an Organized Health Care Education/Training Program
DX: Z13.0 Encounter for screening for diseases of the blood and blood-forming organs and certain disorders involving the immune mechanism (principal)
CPT/HCPCS: 36415; 85014; 85018

== ENCOUNTER → 2024-03-14 08:16 | Outpatient (CLI) | payer OTHER, SELFPAY ==
[2024-03-14 09:32] LABS: Hematocrit 30.3 % (36-46); Hemoglobin 10.2 g/dL (12.0-16.0)
== END ==
PROVIDERS: Referring Provider Student in an Organized Health Care Education/Training Program; Visit Provider Student in an Organized Health Care Education/Training Program
DX: O99.013 Anemia complicating pregnancy, third trimester (principal)
CPT/HCPCS: 36415; 85014; 85018

== ENCOUNTER → 2024-03-29 14:23 | Outpatient (CLI) | payer OTHER, SELFPAY ==
[2024-03-30 14:38] LABS: Strep Grp B PCR NEG for Grp B Strep
== END ==
PROVIDERS: Visit Provider Student in an Organized Health Care Education/Training Program
DX: Z36.85 Encounter for antenatal screening for Streptococcus B (principal)
CPT/HCPCS: 87653